=== PATIENT | female | born 1980 | race Caucasian/White ===

== ENCOUNTER → 2018-07-31 10:43 | Outpatient (CLI) | payer OTHER, SELFPAY ==
[2018-07-31 11:18] LABS: Add Manual Diff / Slide Review NO; Basophils Percent Auto 0.7 % (0-2); Eosinophils Percent Auto 4.9 % (2-4); Hematocrit 39.1 % (36-46); Hemoglobin 13.3 g/dL (12.0-16.0); Lymphocytes Percent Auto 30.4 % (25-40); Mean Corpuscular Hemoglobin 29.9 PG (26-34); Mean Corpuscular Volume 87.9 fL (80-100); Monocytes Percent Auto 6.4 % (3-14); Neutrophils Absolute Auto 3000 /uL (3000-5900); Neutrophils Percent Auto 57.6 % (50-75); Platelet Count 212 X10^3/uL (150-400); Red Blood Cell Count 4.45 X10^6/uL (4.0-5.2); Red Cell Distribution Width 13.9 % (11.6-14.8); White Blood Cell Count 5.2 X10^3/uL (4.5-11.0)
[2018-07-31 11:52] LABS: Alanine Aminotransferase 41 IU/L (9-52); Albumin 4.7 g/dL (3.5-5.0); Albumin Globulin Ratio 1.8 (1.0-2.8); Alkaline Phosphatase 61 U/L (38-126); Aspartate Aminotransferase 25 IU/L (14-36); BUN Creatinine Ratio 26.7 (6-22); Bilirubin Total 0.6 mg/dL (0.2-1.3); Blood Urea Nitrogen 16 mg/dL (7-17); Calcium 9.7 mg/dL (8.4-10.2); Carbon Dioxide 26 mmol/L (22-32); Chloride 106 mmol/L (98-107); Estimated Glomerular Filt Rate > 60.0 mL/min (>60); Globulin 2.6 g/dL (1.7-4.1); Glucose 95 mg/dL (70-100); HEMOLYSIS < 15 (0-50); Potassium 4.5 mmol/L (3.4-5.1); Sodium 143 mmol/L (137-145); Total Protein 7.3 g/dL (6.3-8.2)
[2018-07-31 12:26] LABS: Thyroid Stimulating Hormone 3.11 uIU/mL (0.47-4.68)
== END ==
PROVIDERS: Visit Provider Internal Medicine
DX: R42 Dizziness and giddiness (principal)
CPT/HCPCS: 36415; 80053; 84443; 85025

== ENCOUNTER → 2019-03-04 16:58 | Outpatient (CLI) | payer OTHER, SELFPAY ==
--- NOTE | 2019-03-04 17:01 | DI.MRI.S_ITS ---
PROCEDURE: MR ANGIO HEAD WO CON INDICATIONS: Left sided headaches with vision changes TECHNIQUE: Noncontrast axial 3-D [id number] MR angiogram, with 3-dimensional maximum intensity projection (MIP) reformats of the internal carotid arteries and posterior circulation then performed. COMPARISON: None. FINDINGS: Image quality: Excellent. Anterior circulation: Intracranial internal carotid arteries demonstrate normal size and intraluminal flow signal. The flow within the paired anterior cerebral arteries is normal and symmetric. The flow within the middle cerebral arteries is normal and symmetric. The anterior communicating artery is seen. No stenoses, occlusions, or aneurysms. Posterior circulation: Visualized portions of the vertebral arteries demonstrate normal caliber, and join to form a normal appearing basilar artery. Incidentally noted origin of the left COMMUTATOR TESTER. The flow within the posterior cerebral arteries is normal and symmetric. No stenoses, occlusions, or aneurysms. Mild left likely sinus mucosal thickening. IMPRESSION: Negative examination. No evidence of aneurysm, occlusion or focal stenosis. Mild left maxillary sinus disease which could be further assessed with dedicated CT sinus as clinically warranted. Dictated by: Cristiano Garcia M.D. on 03/05/2019 at 8:18 Approved by: Cristiano Garcia M.D. on 03/05/2019 at 8:27
== END ==
PROVIDERS: Family Provider Family Medicine; PCP Family Medicine; Visit Provider Family Medicine
DX: R51 Headache (principal); H53.9 Unspecified visual disturbance; J32.0 Chronic maxillary sinusitis
CPT/HCPCS: 70544

== ENCOUNTER 2019-03-10 08:40 | Emergency (ER) | payer OTHER, SELFPAY ==
[2019-03-10 08:44] VITALS: BP 177/88; PULSE 58; RESP 20; TEMP 36.3; O2SAT 95; BMI 25.8
--- NOTE | 2019-03-10 08:51 | ED.BACK ---
HPI - Back Pain/Injury General Chief Complaint: Back Pain/Injury Stated Complaint: chest pain,fever for 3 days Time Seen by Provider: 03/10/19 08:46 Source: patient Mode of arrival: ambulatory Limitations: no limitations History of Present Illness HPI Narrative: 38-year-old female nonsmoker with chronic headaches presents with the chief complaint of episodes of fever, epigastric pain and some chest pain since . She had seen her primary care provider and had an MRI for these headaches which noted sinusitis and she was prescribed amoxicillin. She started developing abdominal pain soon thereafter. She denies any change in her headaches. She has no mental status change, blurred vision, trouble with speech or neck pain. Her chest pain is more epigastric pain than anything. She has no trouble breathing and denies much in the way of cough. She has had nausea but no vomiting. Her epigastric pain is present more often than not and worse palpation and potentially food. She had been having dysuria, frequency and urgency few days ago but now is doing better. She denies vaginal bleeding or discharge, last period was March 02 Onset (ago): day(s) Duration: intermittent Similar Symptoms Previously: No Severity: moderate Quality: aching Radiation: none Relieving factors: none Exacerbating factors: none Related Data Previous Rx's Medication Instructions Recorded lorazepam 1 mg tablet 1 mg PO Q12H PRN #20 tab 04/18/18 amoxicillin 875 mg-potassium 1 tab PO BID 7 Days #14 tab 03/05/19 clavulanate 125 mg tablet Allergies Allergy/AdvReac Type Severity Reaction Status Date / Time adhesive tape Allergy Intermediate rash Verified 03/10/19 09:18 hepatitis B virus vaccine Allergy Unknown ANAPHYLAXIS Verified 03/10/19 09:18 measles, mumps, and rubella Allergy Unknown ANAPHYLAXIS Verified 03/10/19 09:18 vaccine morphine Allergy Unknown RASH AND Verified 03/10/19 09:18 SEVERE ITCHING oxycodone [From PERCOCET] Allergy Unknown HIVES Verified 03/10/19 09:18 Review of Systems Constitutional Denies chills, Reports fever(s), Denies lethargy and Denies weakness Eyes Denies change in vision, Denies eye discharge, Denies irritation and Denies loss of vision ENT Ears, Nose, Mouth, and Throat: Denies change in voice, Denies neck pain and Denies sore throat Cardiovascular Reports chest pain, Denies irregular heart rhythm, Denies lightheadedness, Denies palpitations, Denies dyspnea on exertion and Denies orthopnea Respiratory Denies cough, Denies dyspnea on exertion and Denies wheezing Gastrointestinal Gastrointestinal: Reports abdominal pain, Denies change in bowel habits, Denies diarrhea, Reports nausea and Denies vomiting Genitourinary Denies hematuria, Denies flank pain, Denies urinary incontinence and Denies urinary urgency Musculoskeletal Denies neck pain Integumentary/Breasts Denies pruritus, Denies erythema, Denies rash and Denies wounds Neurologic Denies confusion, Denies loss of vision and Denies weakness Psychiatric Denies anxiety, Denies confusion, Denies depression, Denies homicidal ideation and Denies suicidal ideation Endocrine Denies palpitations Hematologic/Lymphatic Denies easy bruising Allergic/Immunologic Denies wheezing [facility] Medical History Hemochromatosis (Acute) Hx of forceps delivery in prior , currently (Resolved) History of maternal fourth degree perineal laceration, currently (Resolved) Depression (Chronic) Miscarriage (Resolved 05/01/13) Surgical History History of left knee surgery (Resolved 2005) History of third molar tooth extraction (Resolved 2001) Status post delivery (Resolved 08/11/16) Social History Smoking Status: Never smoker Social History Smoking Status: Never smoker Exam Narrative Exam Narrative: GENERAL: 38-year-old female in mild distress, obviously quite anxious, rubbing her abdomen, tearful HEAD: Atraumatic. Normocephalic. No temporal or scalp tenderness. EYES: Pupils equal round and reactive. Extraocular motions intact. No scleral icterus. No injection or drainage. ENT: Nose without bleeding, purulent drainage or septal hematoma. Throat without erythema, tonsillar hypertrophy or exudate. Uvula midline. Airway patent. NECK: Trachea midline. No JVD or lymphadenopathy. Supple, nontender, no meningeal signs. CARDIOVASCULAR: Regular rate and rhythm without murmurs, gallops, or rubs. RESPIRATORY: Clear to auscultation. Breath sounds equal bilaterally. No wheezes, rales, or rhonchi. GASTROINTESTINAL: Abdomen soft, mild epigastric pain on palpation, nondistended. No hepato-splenomegaly, or palpable masses. No guarding. EXTREMITIES: No clubbing, cyanosis, or edema. No joint tenderness, effusion, or edema noted. BACK: Nontender without deformity or crepitance. No flank tenderness. NEURO: AOx3. SKIN: No rash or erythema. Initial Vital Signs Initial Vital Signs: Vital Signs Temperature 97.4 F L 03/10/19 08:44 Pulse Rate 58 L 03/10/19 08:44 Respiratory Rate 20 03/10/19 08:44 Blood Pressure 177/88 H 03/10/19 08:44 Pulse Oximetry 95 03/10/19 08:44 Course Orders Ordered: ED Orders 03/10/19 08:58 EKG-12 Lead Stat 03/10/19 09:18 US abdomen limited Stat 03/10/19 09:19 XR chest 1V Stat 03/10/19 10:18 Complete Blood Count AUTO DIFF Stat Comprehensive Metabolic Panel Stat Hepatitis Acute Panel Stat 03/10/19 11:01 Influenza A and B by PCR Rapid Stat Discontinued Medications Al Hydrox/Mg Hydrox/Simethicone 20 ml/ Lidocaine HCl 15 ml 0 ml PO NOW ONE Stop: 03/10/19 11:41 Last Admin: 03/10/19 11:43 Dose: 35 ml Sodium Chloride (Normal Saline 0.9%) 1,000 mls @ 1,000 mls/hr IV BOLUS ONE Stop: 03/10/19 10:17 Last Infusion: 03/10/19 11:11 Dose: 0 mls/hr Infusion: 03/10/19 11:10 Dose: 125 mls/hr Admin: 03/10/19 10:21 Dose: 1,000 mls/hr Ondansetron HCl (Zofran) 4 mg IV Q4HR PRN PRN Reason: Nausea And Vomiting Last Admin: 03/10/19 10:20 Dose: 4 mg Pantoprazole Sodium (Protonix) 40 mg IV NOW ONE Stop: 03/10/19 09:19 Last Admin: 03/10/19 10:21 Dose: 40 mg Consultations Consultation #1: I called the patient's primary care provider to discuss this patient's presentation, she will order outpatient labs and see the patient within the next week Vital Signs - 8 hr 03/10/19 09:15 03/10/19 10:38 03/10/19 12:59 Temperature 97.4 F L 99.5 F Pulse Rate 58 L 60 79 Respiratory Rate 20 15 17 Blood Pressure 177/88 H Blood Pressure [Left Arm] 125/83 106/24 L Pulse Oximetry 95 96 100 03/10/19 13:00 Temperature 99.5 F Pulse Rate 88 Respiratory Rate 16 Blood Pressure 106/64 Blood Pressure [Left Arm] Pulse Oximetry 100 MDM - Back Pain/Injury Lab Data Result diagrams: 03/10/19 10:18 03/10/19 10:18 Lab Results 03/10/19 03/10/19 03/10/19 Range/Units 10:18 10:18 11:01 WBC 6.5 (4.5-11.0) X10^3/uL RBC 4.60 (4.0-5.2) X10^6/uL Hgb 14.2 (12.0-16.0) g/dL Hct 40.4 (36-46) % MCV 87.8 (80-100) fL MCH 30.9 (26-34) PG MCHC 35.2 (30-36) % RDW 13.8 (11.6-14.8) % Plt Count 187 (150-400) X10^3/uL Neut % (Auto) 66.7 (50-75) % Lymph % (Auto) 19.1 L (25-40) % [place] % (Auto) 8.9 (3-14) % Eos % (Auto) 5.1 H (2-4) % Baso % (Auto) 0.2 (0-2) % Neut # (Auto) 4300 (6145-9972) /uL Lymph # (Auto) 1200 (3052-6226) /uL [place] # (Auto) 600 (0-900) /uL Eos # (Auto) 300 (0-450) /uL Baso # (Auto) 0 (0-100) /uL Sodium 141 (137-145) mmol/L Potassium 3.6 (3.4-5.1) mmol/L Chloride 105 (98-107) mmol/L Carbon Dioxide 25 (22-32) mmol/L BUN 8 (7-17) mg/dL Creatinine 0.50 L (0.52-1.04) mg/dL Estimated GFR > 60.0 (>60) mL/min BUN/Creatinine Ratio 16.0 (6-22) Glucose 97 (70-100) mg/dL Calcium 9.1 (8.4-10.2) mg/dL Total Bilirubin 0.7 (0.2-1.3) mg/dL AST 50 H (14-36) IU/L ALT 108 H (9-52) IU/L Alkaline Phosphatase 169 H (38-126) U/L Total Protein 7.4 (6.3-8.2) g/dL Albumin 4.1 (3.5-5.0) g/dL Globulin 3.3 (1.7-4.1) g/dL Albumin/Globulin Ratio 1.2 (1.0-2.8) Influenza A & B (PCR) Negative (Negative) Point of Care Testing Test Results Negative Urine Dip Bedside Urine Glucose Negative Bedside Urine Bilirubin - Negative Bedside Urine Ketone - Negative Urine Specific Masterson 1.010 Bedside Urine Occult Blood - Negative Bedside Urine pH 7.0 Bedside Urine Protein - Negative Bedside Urine Urobilinogen - Negative Bedside Urine Nitrite - Negative Bedside Urine Leukocytes - Negative Esterase Imaging Data Chest x-ray: Radiologist's impression: [address] [id number] XRay Report Signed Patient: Alejandrina Vaughan AMR#: [id number] : 1980Acct:[id number] Age/Sex: 38 / FDate of Service: 03/10/19 Loc: Accession Number: [id number] Procedure: XR chest 1V Ordering Provider: Satya Douglas D.O. PROCEDURE: XR CHEST 1V INDICATIONS: chest pain, fever TECHNIQUE: One view of the chest was acquired. COMPARISON: None. FINDINGS: Surgical changes and devices: None. Lungs and pleura: Lungs are clear. No pleural effusions or pneumothorax. Mediastinum: Mediastinal contours appear normal. Heart size is normal. Bones and chest wall: No suspicious bony lesions. Overlying soft tissues appear unremarkable. IMPRESSION: No acute disease Dictated by: Cristiano Garcia M.D. on 03/10/2019 at 9:58 Approved by: Cristiano Garcia M.D. on 03/10/2019 at 9:58 US - abdomen: Radiologist's impression: [address] [address] Ultrasound Report Signed Patient: Alejandrina Vaughan AMR#: [id number] : 1980Acct:[id number] Age/Sex: 38 / FDate of Service: 03/10/19 Loc: ED Accession Number: [id number] Procedure: US abdomen limited Ordering Provider: Satya Douglas D.O. PROCEDURE: US ABDOMEN LIMITED INDICATIONS: EPIGASTRIC PAIN TECHNIQUE: Real-time focused scanning was performed of the abdomen, with image documentation. COMPARISON: None. FINDINGS: Liver is unremarkable measuring 17.4 cm in length. No focal hepatic lesion. Gallbladder within normal limits. No cholelithiasis. No wall thickening or sonographic Loaiza sign. No intra-or extrahepatic bile duct dilatation the common bile duct measures 5-6 mm. Sonographic appearance of pancreas within normal limits. IMPRESSION: Negative examination. Normal appearance of the gallbladder. Dictated by: Cristiano Garcia M.D. on 03/10/2019 at 9:59 Approved by: Cristiano Garcia M.D. on 03/10/2019 at 9:59 ECG Data Attestation: I personally reviewed and interpreted this ECG as follows: Prior ECG tracings: not available for review Interpretation: EKG is normal sinus rhythm rate [ 79] and free of any signs of ischemia or ectopy. No ST segmental elevation or depression. No T wave inversions Discharge Plan Departure Patient Disposition: Home Clinical Impression: Viral hepatitis Qualifiers: Viral hepatitis type: unspecified Viral hepatitis chronicity: acute Qualified Code(s): B17.9 - Acute viral hepatitis, unspecified Discharge Date/Time: 03/10/19 13:01 Interventions: ED Discharge Assessment Last Done: 03/10/19 13:00 Instructions: Viral Hepatitis (Alternative Therapy) Activity Restrictions/Additional Instructions: *You have been diagnosed with [ Acute Hepatitis, likely viral ] *What to do: *Take medications as directed *Follow up with your primary care provider in about aweek, call for an appointment. Let them know you were seen in the Emergency Department and that we ask that you be seen in follow up. Dr. Sotelo and I have spoken, she will order an outpatient lab for you to get prior to that visit *Return to ER if you should have any new, worsening or concerning symptoms, such as [worsening pain, fever, chills, persistent vomiting or other bothersome symptoms] 1. Drink plenty of fluids with frequent small sips. 2. For the next 24 hours a clear liquid diet is advised. After that please employ a brat diet which would include bananas, rice, apples, toast. 3. Please take medications as directed. 4. Please follow-up with your doctor in the next 1-2 days. Call the office for an appointment. 5. Please return to the emergency Department for any worsening or persistent symptoms, such as increasing pain or fever. Prescriptions: No Action amoxicillin-pot clavulanate [Augmentin] 875-125 mg tablet 1 tab PO BID 7 Days Qty: 14 RF: 0 lorazepam 1 mg tablet 1 mg PO Q12H PRN (Reason: anxiety) Qty: 20 RF: 0 Referrals: Whitney Sotelo MD [Primary Care Provider] -
[2019-03-10 09:15] VITALS: BP 177/88; PULSE 58; RESP 20; TEMP 36.3; O2SAT 95; BMI 26.9
--- NOTE | 2019-03-10 09:18 | DI.US.S_ITS ---
PROCEDURE: US ABDOMEN LIMITED INDICATIONS: EPIGASTRIC PAIN TECHNIQUE: Real-time focused scanning was performed of the abdomen, with image documentation. COMPARISON: None. FINDINGS: Liver is unremarkable measuring 17.4 cm in length. No focal hepatic lesion. Gallbladder within normal limits. No cholelithiasis. No wall thickening or sonographic Loaiza sign. No intra-or extrahepatic bile duct dilatation the common bile duct measures 5-6 mm. Sonographic appearance of pancreas within normal limits. IMPRESSION: Negative examination. Normal appearance of the gallbladder. Dictated by: Cristiano Garcia M.D. on 03/10/2019 at 9:59 Approved by: Cristiano Garcia M.D. on 03/10/2019 at 9:59
--- NOTE | 2019-03-10 09:19 | DI.RAD.S_ITS ---
PROCEDURE: XR CHEST 1V INDICATIONS: chest pain, fever TECHNIQUE: One view of the chest was acquired. COMPARISON: None. FINDINGS: Surgical changes and devices: None. Lungs and pleura: Lungs are clear. No pleural effusions or pneumothorax. Mediastinum: Mediastinal contours appear normal. Heart size is normal. Bones and chest wall: No suspicious bony lesions. Overlying soft tissues appear unremarkable. IMPRESSION: No acute disease Dictated by: Cristiano Garcia M.D. on 03/10/2019 at 9:58 Approved by: Cristiano Garcia M.D. on 03/10/2019 at 9:58
[2019-03-10] MEDS: ONDANSETRON 4 MG/2 ML INJ IV (10:20)
[2019-03-10] MEDS: SODIUM CHLORIDE 0.9% 1,000 ML 1000 ML IV (10:21)
[2019-03-10] MEDS: PANTOPRAZOLE 40 MG VIAL IV (10:21)
[2019-03-10 10:24] LABS: Add Manual Diff / Slide Review NO; Basophils Absolute Auto 0 /uL (0-100); Basophils Percent Auto 0.2 % (0-2); Eosinophils Absolute Auto 300 /uL (0-450); Eosinophils Percent Auto 5.1 % (2-4); Hematocrit 40.4 % (36-46); Hemoglobin 14.2 g/dL (12.0-16.0); Lymphocytes Absolute Auto 1200 /uL (1100-4500); Lymphocytes Percent Auto 19.1 % (25-40); Mean Corpuscular HGB Conc 35.2 % (30-36); Mean Corpuscular Hemoglobin 30.9 PG (26-34); Mean Corpuscular Volume 87.8 fL (80-100); Monocytes Absolute Auto 600 /uL (0-900); Monocytes Percent Auto 8.9 % (3-14); Neutrophils Absolute Auto 4300 /uL (1500-7000); Neutrophils Percent Auto 66.7 % (50-75); Platelet Count 187 X10^3/uL (150-400); Red Cell Distribution Width 13.8 % (11.6-14.8); White Blood Cell Count 6.5 X10^3/uL (4.5-11.0)
--- NOTE | 2019-03-10 10:31 | ED_ITS ---
HPI - Back Pain/Injury General Chief Complaint: Back Pain/Injury Stated Complaint: chest pain,fever for 3 days Time Seen by Provider: 03/10/19 08:46 Source: patient Mode of arrival: ambulatory Limitations: no limitations History of Present Illness HPI Narrative: 38-year-old female nonsmoker with chronic headaches presents with the chief complaint of episodes of fever, epigastric pain and some chest pain since . She had seen her primary care provider and had an MRI for these headaches which noted sinusitis and she was prescribed amoxicillin. She started developing abdominal pain soon thereafter. She denies any change in her headaches. She has no mental status change, blurred vision, trouble with speech or neck pain. Her chest pain is more epigastric pain than anything. She has no trouble breathing and denies much in the way of cough. She has had nausea but no vomiting. Her epigastric pain is present more often than not and worse palpation and potentially food. She had been having dysuria, frequency and urgency few days ago but now is doing better. She denies vaginal bleeding or discharge, last period was March 02 Onset (ago): day(s) Duration: intermittent Similar Symptoms Previously: No Severity: moderate Quality: aching Radiation: none Relieving factors: none Exacerbating factors: none Related Data Previous Rx's Medication Instructions Recorded lorazepam 1 mg tablet 1 mg PO Q12H PRN #20 tab 04/18/18 amoxicillin 875 mg-potassium 1 tab PO BID 7 Days #14 tab 03/05/19 clavulanate 125 mg tablet Allergies Allergy/AdvReac Type Severity Reaction Status Date / Time adhesive tape Allergy Intermediate rash Verified 03/10/19 09:18 hepatitis B virus vaccine Allergy Unknown ANAPHYLAXIS Verified 03/10/19 09:18 measles, mumps, and rubella Allergy Unknown ANAPHYLAXIS Verified 03/10/19 09:18 vaccine morphine Allergy Unknown RASH AND Verified 03/10/19 09:18 SEVERE ITCHING oxycodone [From PERCOCET] Allergy Unknown HIVES Verified 03/10/19 09:18 Review of Systems Constitutional Denies chills, Reports fever(s), Denies lethargy and Denies weakness Eyes Denies change in vision, Denies eye discharge, Denies irritation and Denies loss of vision ENT Ears, Nose, Mouth, and Throat: Denies change in voice, Denies neck pain and Denies sore throat Cardiovascular Reports chest pain, Denies irregular heart rhythm, Denies lightheadedness, Denies palpitations, Denies dyspnea on exertion and Denies orthopnea Respiratory Denies cough, Denies dyspnea on exertion and Denies wheezing Gastrointestinal Gastrointestinal: Reports abdominal pain, Denies change in bowel habits, Denies diarrhea, Reports nausea and Denies vomiting Genitourinary Denies hematuria, Denies flank pain, Denies urinary incontinence and Denies urinary urgency Musculoskeletal Denies neck pain Integumentary/Breasts Denies pruritus, Denies erythema, Denies rash and Denies wounds Neurologic Denies confusion, Denies loss of vision and Denies weakness Psychiatric Denies anxiety, Denies confusion, Denies depression, Denies homicidal ideation and Denies suicidal ideation Endocrine Denies palpitations Hematologic/Lymphatic Denies easy bruising Allergic/Immunologic Denies wheezing [facility] Medical History Hemochromatosis (Acute) Hx of forceps delivery in prior , currently (Resolved) History of maternal fourth degree perineal laceration, currently (Resol chito) Depression (Chronic) Miscarriage (Resolved 05/01/13) Surgical History History of left knee surgery (Resolved 2005) History of third molar tooth extraction (Resolved 2001) Status post delivery (Resolved 08/11/16) Social History Smoking Status: Never smoker Social History Smoking Status: Never smoker Exam Narrative Exam Narrative: GENERAL: 38-year-old female in mild distress, obviously quite anxious, rubbing her abdomen, tearful HEAD: Atraumatic. Normocephalic. No temporal or scalp tenderness. EYES: Pupils equal round and reactive. Extraocular motions intact. No scleral icterus. No injection or drainage. ENT: Nose without bleeding, purulent drainage or septal hematoma. Throat without erythema, tonsillar hypertrophy or exudate. Uvula midline. Airway patent. NECK: Trachea midline. No JVD or lymphadenopathy. Supple, nontender, no meningeal signs. CARDIOVASCULAR: Regular rate and rhythm without murmurs, gallops, or rubs. RESPIRATORY: Clear to auscultation. Breath sounds equal bilaterally. No wheezes, rales, or rhonchi. GASTROINTESTINAL: Abdomen soft, mild epigastric pain on palpation, nondistended. No hepato-splenomegaly, or palpable masses. No guarding. EXTREMITIES: No clubbing, cyanosis, or edema. No joint tenderness, effusion, or edema noted. BACK: Nontender without deformity or crepitance. No flank tenderness. NEURO: AOx3. SKIN: No rash or erythema. Initial Vital Signs Initial Vital Signs: Vital Signs Temperature 97.4 F L 03/10/19 08:44 Pulse Rate 58 L 03/10/19 08:44 Respiratory Rate 20 03/10/19 08:44 Blood Pressure 177/88 H 03/10/19 08:44 Pulse Oximetry 95 03/10/19 08:44 Course Orders Ordered: ED Orders 03/10/19 08:58 EKG-12 Lead Stat 03/10/19 09:18 US abdomen limited Stat 03/10/19 09:19 XR chest 1V Stat 03/10/19 10:18 Complete Blood Count AUTO DIFF Stat Comprehensive Metabolic Panel Stat Hepatitis Acute Panel Stat 03/10/19 11:01 Influenza A and B by PCR Rapid Stat Discontinued Medications Al Hydrox/Mg Hydrox/Simethicone 20 ml/ Lidocaine HCl 15 ml 0 ml PO NOW ONE Stop: 03/10/19 11:41 Last Admin: 03/10/19 11:43 Dose: 35 ml Sodium Chloride (Normal Saline 0.9%) 1,000 mls @ 1,000 mls/hr IV BOLUS ONE Stop: 03/10/19 10:17 Last Infusion: 03/10/19 11:11 Dose: 0 mls/hr Infusion: 03/10/19 11:10 Dose: 125 mls/hr Admin: 03/10/19 10:21 Dose: 1,000 mls/hr Ondansetron HCl (Zofran) 4 mg IV Q4HR PRN PRN Reason: Nausea And Vomiting Last Admin: 03/10/19 10:20 Dose: 4 mg Pantoprazole Sodium (Protonix) 40 mg IV NOW ONE Stop: 03/10/19 09:19 Last Admin: 03/10/19 10:21 Dose: 40 mg Consultations Consultation #1: I called the patient's primary care provider to discuss this patient's presentation, she will order outpatient labs and see the patient within the next week Vital Signs - 8 hr 03/10/19 09:15 03/10/19 10:38 03/10/19 12:59 Temperature 97.4 F L 99.5 F Pulse Rate 58 L 60 79 Respiratory Rate 20 15 17 Blood Pressure 177/88 H Blood Pressure [Left Arm] 125/83 106/24 L Pulse Oximetry 95 96 100 03/10/19 13:00 Temperature 99.5 F Pulse Rate 88 Respiratory Rate 16 Blood Pressure 106/64 Blood Pressure [Left Arm] Pulse Oximetry 100 MDM - Back Pain/Injury Lab Data Result diagrams: 03/10/19 10:18 03/10/19 10:18 Lab Results 03/10/19 03/10/19 03/10/19 Range/Units 10:18 10:18 11:01 WBC 6.5 (4.5-11.0) X10^3/uL RBC 4.60 (4.0-5.2) X10^6/uL Hgb 14.2 (12.0-16.0) g/dL Hct 40.4 (36-46) % MCV 87.8 (80-100) fL MCH 30.9 (26-34) PG MCHC 35.2 (30-36) % RDW 13.8 (11.6-14.8) % Plt Count 187 (150-400) X10^3/uL Neut % (Auto) 66.7 (50-75) % Lymph % (Auto) 19.1 L (25-40) % [place] % (Auto) 8.9 (3-14) % Eos % (Auto) 5.1 H (2-4) % Baso % (Auto) 0.2 (0-2) % Neut # (Auto) 4300 (5451-6833) /uL Lymph # (Auto) 1200 (7865-1869) /uL [place] # (Auto) 600 (0-900) /uL Eos # (Auto) 300 (0-450) /uL Baso # (Auto) 0 (0-100) /uL Sodium 141 (137-145) mmol/L Potassium 3.6 (3.4-5.1) mmol/L Chloride 105 (98-107) mmol/L Carbon Dioxide 25 (22-32) mmol/L BUN 8 (7-17) mg/dL Creatinine 0.50 L (0.52-1.04) mg/dL Estimated GFR > 60.0 (>60) mL/min BUN/Creatinine Ratio 16.0 (6-22) Glucose 97 (70-100) mg/dL Calcium 9.1 (8.4-10.2) mg/dL Total Bilirubin 0.7 (0.2-1.3) mg/dL AST 50 H (14-36) IU/L ALT 108 H (9-52) IU/L Alkaline Phosphatase 169 H (38-126) U/L Total Protein 7.4 (6.3-8.2) g/dL Albumin 4.1 (3.5-5.0) g/dL Globulin 3.3 (1.7-4.1) g/dL Albumin/Globulin Ratio 1.2 (1.0-2.8) Influenza A & B (PCR) Negative (Negative) Point of Care Testing Test Results Negative Urine Dip Bedside Urine Glucose Negative Bedside Urine Bilirubin - Negative Bedside Urine Ketone - Negative Urine Specific [place] 1.010 Bedside Urine Occult Blood - Negative Bedside Urine pH 7.0 Bedside Urine Protein - Negative Bedside Urine Urobilinogen - Negative Bedside Urine Nitrite - Negative Bedside Urine Leukocytes - Negative Esterase Imaging Data Chest x-ray: Radiologist's impression: [address] [id number] XRay Report Signed Patient: Alejandrina Vaughan AMR#: [id number] : 1980Acct:[id number] Age/Sex: 38 / FDate of Service: 03/10/19 Loc: Accession Number: [id number] Procedure: XR chest 1V Ordering Provider: Satya Douglas D.O. PROCEDURE: XR CHEST 1V INDICATIONS: chest pain, fever TECHNIQUE: One view of the chest was acquired. COMPARISON: None. FINDINGS: Surgical changes and devices: None. Lungs and pleura: Lungs are clear. No pleural effusions or pneumothorax. Mediastinum: Mediastinal contours appear normal. Heart size is normal. Bones and chest wall: No suspicious bony lesions. Overlying soft tissues appear unremarkable. IMPRESSION: No acute disease Dictated by: Cristiano Garcia M.D. on 03/10/2019 at 9:58 Approved by: Cristiano Garcia M.D. on 03/10/2019 at 9:58 US - abdomen: Radiologist's impression: [address] [id number] Ultrasound Report Signed Patient: Alejandrina Vaughan AMR#: [id number] : 1980Acct:[id number] Age/Sex: 38 / FDate of Service: 03/10/19 Loc: ED Accession Number: [id number] Procedure: US abdomen limited Ordering Provider: Satya Douglas D.O. PROCEDURE: US ABDOMEN LIMITED INDICATIONS: EPIGASTRIC PAIN TECHNIQUE: Real-time focused scanning was performed of the abdomen, with image documentation. COMPARISON: None. FINDINGS: Liver is unremarkable measuring 17.4 cm in length. No focal hepatic lesion. Gallbladder within normal limits. No cholelithiasis. No wall thickening or sonographic [place] sign. No intra-or extrahepatic bile duct dilatation the common bile duct measures 5-6 mm. Sonographic appearance of pancreas within normal limits. IMPRESSION: Negative examination. Normal appearance of the gallbladder. Dictated by: Cristiano Garcia M.D. on 03/10/2019 at 9:59 Approved by: Cristiano Garcia M.D. on 03/10/2019 at 9:59 ECG Data Attestation: I personally reviewed and interpreted this ECG as follows: Prior ECG tracings: not available for review Interpretation: EKG is normal sinus rhythm rate [ 79] and free of any signs of ischemia or ectopy. No ST segmental elevation or depression. No T wave inversions Discharge Plan Departure Patient Disposition: Home Clinical Impression: Viral hepatitis Qualifiers: Viral hepatitis type: unspecified Viral hepatitis chronicity: acute Qualified Code(s): B17.9 - Acute viral hepatitis, unspecified Discharge Date/Time: 03/10/19 13:01 Interventions: ED Discharge Assessment Last Done: 03/10/19 13:00 Instructions: Viral Hepatitis (Alternative Therapy) Activity Restrictions/Additional Instructions: *You have been diagnosed with [ Acute Hepatitis, likely viral ] *What to do: *Take medications as directed *Follow up with your primary care provider in about aweek, call for an appointment. Let them know you were seen in the Emergency Department and that we ask that you be seen in follow up. Dr. Sotelo and I have spoken, she will order an outpatient lab for you to get prior to that visit *Return to ER if you should have any new, worsening or concerning symptoms, such as [worsening pain, fever, chills, persistent vomiting or other bothersome symptoms] 1. Drink plenty of fluids with frequent small sips. 2. For the next 24 hours a clear liquid diet is advised. After that please employ a brat diet which would include bananas, rice, apples, toast. 3. Please take medications as directed. 4. Please follow-up with your doctor in the next 1-2 days. Call the office for an appointment. 5. Please return to the emergency Department for any worsening or persistent symptoms, such as increasing pain or fever. Prescriptions: No Action amoxicillin-pot clavulanate [Augmentin] 875-125 mg tablet 1 tab PO BID 7 Days Qty: 14 RF: 0 lorazepam 1 mg tablet 1 mg PO Q12H PRN (Reason: anxiety) Qty: 20 RF: 0 Referrals: Whitney Sotelo MD [Primary Care Provider] -
[2019-03-10 10:37] LABS: Alanine Aminotransferase 108 IU/L (9-52); Albumin 4.1 g/dL (3.5-5.0); Albumin Globulin Ratio 1.2 (1.0-2.8); Alkaline Phosphatase 169 U/L (38-126); Aspartate Aminotransferase 50 IU/L (14-36); Bilirubin Total 0.7 mg/dL (0.2-1.3); Blood Urea Nitrogen 8 mg/dL (7-17); Calcium 9.1 mg/dL (8.4-10.2); Carbon Dioxide 25 mmol/L (22-32); Chloride 105 mmol/L (98-107); Estimated Glomerular Filt Rate > 60.0 mL/min (>60); Globulin 3.3 g/dL (1.7-4.1); Glucose 97 mg/dL (70-100); HEMOLYSIS < 15 (0-50); Potassium 3.6 mmol/L (3.4-5.1); Sodium 141 mmol/L (137-145); Total Protein 7.4 g/dL (6.3-8.2)
[2019-03-10 10:38] VITALS: BP 125/83; PULSE 60; RESP 15; O2SAT 96
[2019-03-10 11:24] LABS: Influenza A and B by PCR Rapid Negative (Negative)
[2019-03-10] MEDS: MAG HYDROX/ALUMINUM/SIMETH SUS 20 ML, LIDOCAINE VISCOUS 2% 15 ML PO (11:43)
[2019-03-10 12:59] VITALS: BP 106/24; PULSE 79; RESP 17; TEMP 37.5; O2SAT 100
[2019-03-10 13:00] VITALS: BP 106/64; PULSE 88; RESP 16; TEMP 37.5; O2SAT 100
[2019-03-12 16:19] LABS: Hepatitis A Antibody IgM NONREACTIVE (NONREACTIVE); Hepatitis Acute Panel Interp 0.03; Hepatitis B Core Antibody IgM NONREACTIVE (NONREACTIVE); Hepatitis B Surface Antigen NONREACTIVE (NONREACTIVE); Hepatitis C Antibody NONREACTIVE
== END 2019-03-10 13:01 | disposition home or self-care (01) ==
PROVIDERS: Emergency Provider Emergency Medicine; Family Provider Family Medicine; PCP Family Medicine
DX: B17.9 Acute viral hepatitis, unspecified (principal)
CPT/HCPCS: 36591; 71045; 76705; 80053; 80074; 81003; 81025; 85025; 87400; 93005; 93010; 96361; 96374; 96375; 99283; 99285; C9113; J2405

== ENCOUNTER → 2019-03-13 10:49 | Outpatient (CLI) | payer OTHER, SELFPAY ==
[2019-03-13 13:17] LABS: Alanine Aminotransferase 69 IU/L (9-52); Albumin 4.2 g/dL (3.5-5.0); Albumin Globulin Ratio 1.6 (1.0-2.8); Alkaline Phosphatase 128 U/L (38-126); Aspartate Aminotransferase 36 IU/L (14-36); BUN Creatinine Ratio 17.5 (6-22); Bilirubin Total 0.4 mg/dL (0.2-1.3); Blood Urea Nitrogen 14 mg/dL (7-17); Calcium 9.5 mg/dL (8.4-10.2); Carbon Dioxide 26 mmol/L (22-32); Chloride 102 mmol/L (98-107); Estimated Glomerular Filt Rate > 60.0 mL/min (>60); Globulin 2.6 g/dL (1.7-4.1); Glucose 78 mg/dL (70-100); HEMOLYSIS < 15 (0-50); Potassium 4.3 mmol/L (3.4-5.1); Sodium 140 mmol/L (137-145); Total Protein 6.8 g/dL (6.3-8.2)
[2019-03-14 15:03] LABS: HEMOLYSIS < 15 (0-50); Iron 94 ug/dL (37-170)
[2019-03-14 15:14] LABS: Percent Iron Saturation 35 % (15-50); Total Iron Binding Capacity 269 ug/dL (265-497); Transferrin 212 mg/dL (206-381)
== END ==
PROVIDERS: PCP Family Medicine; Visit Provider Family Medicine
DX: R74.8 Abnormal levels of other serum enzymes (principal); E83.119 Hemochromatosis, unspecified
CPT/HCPCS: 36415; 80053; 83540; 83550

== ENCOUNTER → 2020-04-23 09:03 | Outpatient (CLI) | payer OTHER, SELFPAY ==
--- NOTE | 2020-04-23 09:06 | DI.US.S_ITS ---
LIMITED ULTRASOUND OF LEFT BREAST: 04/23/2020 CLINICAL: Area of pain. Comparison is made to exam dated: 04/23/2020 [facility]. Real-time ultrasound of the left breast 2-3 o'clock region was performed. Haynes scale images of the real-time examination were reviewed. No significant abnormalities were seen sonographically in the left breast. Specifically, no finding to correspond to the patient's pain. There is dense fibroglandular tissue in this region, consistent with mammogram appearance. IMPRESSION: PROBABLY BENIGN There is no sonographic correlate to the patient's pain and no evidence of malignancy. A follow-up left mammogram in 6 months is recommended to demonstrate stability. Findings and recommendations were conveyed to the patient in person at time of exam. This exam was interpreted at Station ID: [id number]. Electronically Signed By: Imelda huber/:04/23/2020 10:49:26 letter sent: Followup Recommended Ultrasound BI-RADS: 3 Probably benign
--- NOTE | 2020-04-23 09:06 | DI.MG.S_ITS ---
BILATERAL DIGITAL DIAGNOSTIC MAMMOGRAM 3D/2D: 04/23/2020 CLINICAL: Breast pain. Baseline exam. No prior exams were available for comparison. There are scattered fibroglandular elements in both breasts. There is a possible irregular equal density global asymmetry in the left breast at 1 o'clock middle depth. A discrete focal asymmetry is not seen in additional views. This correlates to the painful area. No other significant masses, calcifications, or other findings are seen in either breast. IMPRESSION: INCOMPLETE: NEEDS ADDITIONAL IMAGING EVALUATION The possible irregular equal density global asymmetry in the left breast is probably fibroglandular tissue and is indeterminate. An ultrasound is recommended. This was performed immediately following this exam. This exam was interpreted at Station ID: [id number]. NOTE: For mammograms, a report in lay terms will be sent to the patient. Approximately 15% of breast malignancies will not be visualized mammographically. In the management of a palpable breast mass, a negative mammogram must not discourage biopsy of a clinically suspicious lesion. Electronically Signed By: Imelda huber/:04/23/2020 10:50:01 ACR BI-RADS Category 0: Incomplete [id number]
== END ==
PROVIDERS: PCP Nurse Practitioner Family; Referring Provider Nurse Practitioner Family; Visit Provider Nurse Practitioner Family
DX: R92.8 Other abnormal and inconclusive findings on diagnostic imaging of breast (principal); N64.4 Mastodynia; N64.89 Other specified disorders of breast
CPT/HCPCS: 76642; 77066; G0279

== ENCOUNTER → 2020-12-01 06:44 | Outpatient (CLI) | payer OTHER, SELFPAY ==
[2020-12-01 09:35] LABS: Hematocrit 38.9 % (36-46); Hemoglobin 13.5 g/dL (12.0-16.0); Mean Corpuscular HGB Conc 34.7 % (30-36); Mean Corpuscular Hemoglobin 30.9 PG (26-34); Mean Corpuscular Volume 89.2 fL (80-100); Platelet Count 183 X10^3/uL (150-400); Red Blood Cell Count 4.36 X10^6/uL (4.0-5.2); Red Cell Distribution Width 13.2 % (11.6-14.8); White Blood Cell Count 5.8 X10^3/uL (4.5-11.0)
[2020-12-01 09:50] LABS: Alanine Aminotransferase 27 IU/L (<35); Albumin 4.2 g/dL (3.5-5.0); Albumin Globulin Ratio 1.4 (1.0-2.8); Alkaline Phosphatase 45 U/L (38-126); Aspartate Aminotransferase 26 IU/L (14-36); BUN Creatinine Ratio 26.7 (6-22); Bilirubin Total 0.5 mg/dL (0.2-1.3); Blood Urea Nitrogen 16 mg/dL (7-17); Calcium 9.1 mg/dL (8.4-10.2); Carbon Dioxide 27 mmol/L (22-32); Chloride 107 mmol/L (98-107); Cholesterol 196 mg/dL (140-199); Estimated Glomerular Filt Rate > 60.0 mL/min (>60); Globulin 2.9 g/dL (1.7-4.1); Glucose 99 mg/dL (70-100); HDL Cholesterol 56 mg/dL (40-60); HEMOLYSIS < 15 (0-50); LDL Cholesterol Calculated 117 mg/dL (<100); Potassium 3.9 mmol/L (3.4-5.1); Sodium 137 mmol/L (137-145); Total Protein 7.1 g/dL (6.3-8.2); Triglycerides 117 mg/dL (35-150)
[2020-12-01 10:28] LABS: TSH w/ Reflex to FT4 4.25 uIU/mL (0.47-4.68)
== END ==
PROVIDERS: PCP Registered Nurse Diabetes Educator; Referring Provider Registered Nurse Diabetes Educator; Visit Provider Registered Nurse Diabetes Educator
DX: Z00.00 Encounter for general adult medical examination without abnormal findings (principal); E66.9 Obesity, unspecified; R74.8 Abnormal levels of other serum enzymes
CPT/HCPCS: 36415; 80053; 80061; 84443; 85027

== ENCOUNTER → 2021-01-21 08:37 | Outpatient (CLI) | payer OTHER, SELFPAY ==
--- NOTE | 2021-01-21 08:37 | DI.MG.S_ITS ---
BILATERAL DIGITAL DIAGNOSTIC MAMMOGRAM 3D/2D: 01/21/2021 CLINICAL: Short term follow up of the left breast, due for bilateral imaging. Comparison is made to exams dated: 04/23/2020 mammogram and 04/23/2020 [facility]. There are scattered fibroglandular elements in both breasts. Persistent irregular equal density global asymmetry in the left breast at 1 o'clock middle depth is not significantly changed and correlated with dense fibroglandular breast tissue on prior evaluation. No other significant masses, calcifications, or other findings are seen in either breast. IMPRESSION: INCOMPLETE: NEEDS ADDITIONAL IMAGING EVALUATION The irregular equal density global asymmetry in the left breast is consistent with fibroglandular tissue and is indeterminate. An ultrasound is recommended for further evaluation to confirm stability of findings, and is scheduled to immediately follow this examination. This exam was interpreted at Station ID: [id number]. NOTE: For mammograms, a report in lay terms will be sent to the patient. Approximately 15% of breast malignancies will not be visualized mammographically. In the management of a palpable breast mass, a negative mammogram must not discourage biopsy of a clinically suspicious lesion. Electronically Signed By: Santy Sampson M.D. aty/:01/21/2021 09:31:01 ACR BI-RADS Category 0: Incomplete [id number]
--- NOTE | 2021-01-21 08:37 | DI.US.S_ITS ---
ULTRASOUND OF LEFT BREAST: 01/21/2021 CLINICAL: 6 mo follow up area of pain left breast. Comparison is made to exams dated: 04/23/2020 mammogram, 04/23/2020 ultrasound, and 01/21/2021 mammogram - [facility]. Color flow and real-time ultrasound of the left breast were performed. Haynes scale images of the real-time examination were reviewed. No significant abnormalities were seen sonographically in the left breast. Dense fibroglandular tissue is noted in the upper outer quadrant of the left breast consistent with findings on mammogram and similar to findings on prior evaluation. IMPRESSION: NEGATIVE There is no sonographic evidence of malignancy. A 1 year screening mammogram is recommended. Findings and recommendations were conveyed to the patient during today's evaluation. This exam was interpreted at Station ID: [id number]. Electronically Signed By: Santy Sampson M.D. aty/:01/21/2021 12:28:10 letter sent: Normal Exam Ultrasound BI-RADS: 1 Negative
== END ==
PROVIDERS: PCP Registered Nurse Diabetes Educator; Referring Provider Registered Nurse Diabetes Educator; Visit Provider Registered Nurse Diabetes Educator
DX: R92.8 Other abnormal and inconclusive findings on diagnostic imaging of breast (principal); N64.4 Mastodynia
CPT/HCPCS: 76642; 77066; G0279

== ENCOUNTER → 2021-09-16 14:43 | Outpatient (CLI) | payer OTHER, SELFPAY ==
[2021-09-16] MEDS: COVID-19 VACC #3, MRNA(MOD) 50 MCG/0.25 ML VIAL IM (14:47)
== END ==
PROVIDERS: PCP Registered Nurse Diabetes Educator; Visit Provider Internal Medicine
DX: Z23 Encounter for immunization (principal)
CPT/HCPCS: 0013A; 91301

== ENCOUNTER → 2025-05-21 06:37 | Outpatient (CLI) | payer OTHER, SELFPAY ==
[2025-05-21 07:46] LABS: Hematocrit 39.0 % (36-46); Hemoglobin 13.4 g/dL (12.0-16.0); Mean Corpuscular HGB Conc 34.4 % (30-36); Mean Corpuscular Hemoglobin 30.7 PG (26-34); Mean Corpuscular Volume 89.0 fL (80-100); Platelet Count 232 X10^3/uL (150-400)
[2025-05-21 08:26] LABS: Alanine Aminotransferase 30 IU/L (<35); Albumin 4.6 g/dL (3.5-5.0); Albumin Globulin Ratio 1.5 (1.0-2.8); Alkaline Phosphatase 55 U/L (38-126); Blood Urea Nitrogen 21 mg/dL (7-17); Calcium 9.2 mg/dL (8.4-10.2); Carbon Dioxide 24 mmol/L (22-32); Chloride 107 mmol/L (98-107); Cholesterol 209 mg/dL (140-199); Estimated Glomerular Filt Rate > 60 mL/min (>60); Globulin 3.0 g/dL (1.7-4.1); Glucose 95 mg/dL (70-99); HDL Cholesterol 62 mg/dL (40-60); HEMOLYSIS < 15 (0-50); Potassium 3.8 mmol/L (3.4-5.1); Sodium 140 mmol/L (137-145); Total Protein 7.6 g/dL (6.3-8.2); Triglycerides 69 mg/dL (35-150)
[2025-05-21 08:50] LABS: TSH w/ Reflex to FT4 2.92 uIU/mL (0.47-4.68)
== END ==
PROVIDERS: PCP Registered Nurse Diabetes Educator; Referring Provider Registered Nurse Diabetes Educator; Visit Provider Registered Nurse Diabetes Educator
DX: Z00.00 Encounter for general adult medical examination without abnormal findings (principal); E78.5 Hyperlipidemia, unspecified
CPT/HCPCS: 36415; 80053; 80061; 84443; 85027